=== PATIENT | female | born 2000 | race Caucasian/White ===

== ENCOUNTER 2022-07-20 22:07 | Emergency (ER) | payer SELFPAY, OTHER ==
[2022-07-20] MEDS ORDERED: Acetaminophen 500 MG TAB ONE (22:26)
== END 2022-07-20 23:52 | disposition home or self-care (01) ==
LOC: CSHERS 22:07
DX: S09.90XA Unspecified injury of head, initial encounter (principal); V89.2XXA Person injured in unspecified motor-vehicle accident, traffic, initial encounter; M79.641 Pain in right hand